=== PATIENT | male | born 1940 | race Caucasian/White ===

== ENCOUNTER → 2016-07-18 | Outpatient (CLI) | payer MEDICARE, OTHER ==
[~2016-07-18] MED LIST: CLOB0.055; HYDR-3533 PO; LUTE20TA PO; LYRI200C; LYRI200C PO; MELA10CA PO; PRED1SUS6; SPIRCAP; SPIRCAP INH; THEO200T27 PO; VIGA0.5D; VITA250T5 PO; [UNRECOGNIZED DRUG - CODE] PO
[2016-07-18 16:04] LABS: HEMATOCRIT 43.7 % (39.0-51.0); MEAN CELL VOLUME 103.3 FL (80.0-100.0); MEAN CORPUSCULAR HEMOGLOBIN 35.9 PG (27.0-34.0); MEAN CORPUSCULAR HGB CONC 34.8 % (32.0-36.0); PLATELET COUNT 163 TH/MM3 (150-450); RED BLOOD COUNT 4.23 MIL/MM3 (4.50-5.90); RED CELL DISTRIBUTION WIDTH 14.9 % (11.6-17.2); REVIEW FLAG FINAL; WHITE BLOOD COUNT 7.3 TH/MM3 (4.0-11.0)
[2016-07-18 16:23] LABS: ALKALINE PHOSPHATASE 154 U/L (45-117); ALT (GPT) 58 U/L (12-78); ANION GAP 8 MEQ/L (5-15); AST (GOT) 61 U/L (15-37); BICARBONATE 26.3 MEQ/L (21.0-32.0); BLOOD UREA NITROGEN 15 MG/DL (7-18); CHLORIDE 109 MEQ/L (98-107); GLOMERULAR FILTRATION RATE 54 ML/MIN (>89); GLUCOSE,FASTING 95 MG/DL (74-99); HDL CHOLESTEROL 71.2 MG/DL (40.0-60.0); LDL CHOLESTEROL 45 MG/DL (0-99); LDL CHOLESTEROL DIRECT 73 MG/DL (0-99); SODIUM (NA) 143 MEQ/L (136-145); TOTAL BILIRUBIN ADULT 0.9 MG/DL (0.2-1.0)
== END ==
LOC: PLAB 13:01
PROVIDERS: ATTEND Family Medicine
DX: E78.4 Other hyperlipidemia (principal); I10 Essential (primary) hypertension; J44.9 Chronic obstructive pulmonary disease, unspecified; R10.32 Left lower quadrant pain
CPT/HCPCS: 36415; 80053; 80061; 83721; 85027

== ENCOUNTER → 2016-10-17 | Outpatient (CLI) | payer MEDICARE, OTHER ==
[~2016-10-17] MED LIST changes: -HYDR-3533 PO; -LUTE20TA PO; -LYRI200C PO; -MELA10CA PO; -SPIRCAP INH; -THEO200T27 PO; -VITA250T5 PO; -[UNRECOGNIZED DRUG - CODE] PO
[2016-10-17 15:58] LABS: HEMATOCRIT 44.1 % (39.0-51.0); MEAN CELL VOLUME 105.7 FL (80.0-100.0); MEAN CORPUSCULAR HEMOGLOBIN 35.2 PG (27.0-34.0); MEAN CORPUSCULAR HGB CONC 33.3 % (32.0-36.0); PLATELET COUNT 169 TH/MM3 (150-450); RED BLOOD COUNT 4.17 MIL/MM3 (4.50-5.90); RED CELL DISTRIBUTION WIDTH 15.9 % (11.6-17.2); REVIEW FLAG FINAL; WHITE BLOOD COUNT 6.6 TH/MM3 (4.0-11.0)
[2016-10-17 16:15] LABS: ALT (GPT) 39 U/L (12-78); ANION GAP 7 MEQ/L (5-15); AST (GOT) 36 U/L (15-37); BICARBONATE 29.2 MEQ/L (21.0-32.0); BLOOD UREA NITROGEN 20 MG/DL (7-18); CHLORIDE 109 MEQ/L (98-107); GLOMERULAR FILTRATION RATE 50 ML/MIN (>89); GLUCOSE,FASTING 89 MG/DL (74-99); SODIUM (NA) 145 MEQ/L (136-145)
[2016-10-17 16:17] LABS: ALKALINE PHOSPHATASE 132 U/L (45-117); HDL CHOLESTEROL 63.7 MG/DL (40.0-60.0); LDL CHOLESTEROL 73 MG/DL (0-99); LDL CHOLESTEROL DIRECT 77 MG/DL (0-99); TOTAL BILIRUBIN ADULT 0.8 MG/DL (0.2-1.0)
== END ==
LOC: PLAB 13:56
PROVIDERS: ATTEND Family Medicine
DX: I12.9 Hypertensive chronic kidney disease with stage 1 through stage 4 chronic kidney disease, or unspecified chronic kidney disease (principal); N18.3 Chronic kidney disease, stage 3 (moderate); E78.2 Mixed hyperlipidemia
CPT/HCPCS: 36415; 80053; 80061; 83721; 85027

== ENCOUNTER → 2017-01-18 | Outpatient (CLI) | payer MEDICARE, OTHER ==
[2017-01-18 12:48] LABS: HEMATOCRIT 41.5 % (39.0-51.0); MEAN CELL VOLUME 106.8 FL (80.0-100.0); MEAN CORPUSCULAR HEMOGLOBIN 35.9 PG (27.0-34.0); MEAN CORPUSCULAR HGB CONC 33.6 % (32.0-36.0); PLATELET COUNT 251 TH/MM3 (150-450); RED BLOOD COUNT 3.88 MIL/MM3 (4.50-5.90); RED CELL DISTRIBUTION WIDTH 15.1 % (11.6-17.2); REVIEW FLAG FINAL; WHITE BLOOD COUNT 7.1 TH/MM3 (4.0-11.0)
[2017-01-18 13:17] LABS: ANION GAP 8 MEQ/L (5-15); AST (GOT) 32 U/L (15-37); BICARBONATE 30.4 MEQ/L (21.0-32.0); BLOOD UREA NITROGEN 29 MG/DL (7-18); CHLORIDE 105 MEQ/L (98-107); GLOMERULAR FILTRATION RATE 49 ML/MIN (>89); GLUCOSE,FASTING 96 MG/DL (74-99); POTASSIUM 3.8 MEQ/L (3.5-5.1); SODIUM (NA) 143 MEQ/L (136-145)
[2017-01-18 13:28] LABS: ALKALINE PHOSPHATASE 125 U/L (45-117); ALT (GPT) 35 U/L (12-78); HDL CHOLESTEROL 45.1 MG/DL (40.0-60.0); LDL CHOLESTEROL 60 MG/DL (0-99); LDL CHOLESTEROL DIRECT 77 MG/DL (0-99); TOTAL BILIRUBIN ADULT 0.7 MG/DL (0.2-1.0)
== END ==
LOC: PLAB 10:44
PROVIDERS: ATTEND Family Medicine
DX: J44.9 Chronic obstructive pulmonary disease, unspecified (principal); N18.3 Chronic kidney disease, stage 3 (moderate); E78.2 Mixed hyperlipidemia; I12.9 Hypertensive chronic kidney disease with stage 1 through stage 4 chronic kidney disease, or unspecified chronic kidney disease
CPT/HCPCS: 36415; 80053; 80061; 83721; 85027

== ENCOUNTER 2017-07-05 02:02 | Emergency (ER) | payer MEDICARE, OTHER ==
[~2017-07-05] VITALS: Ht 177.8 cm; Wt 84.0 kg
[2017-07-05 02:15] VITALS: BP 158/95; PULSE 82; RESP 18; TEMP 97.6; O2SAT 96
[2017-07-05 02:27] LABS: AUTOMATED NEUTROPHIL # 4.5 TH/MM3 (1.8-7.7); BASOPHIL # 0.1 TH/MM3 (0-0.2); BASOPHIL % 1.2 % (0.0-2.0); EOSINOPHIL # 0.4 TH/MM3 (0-0.4); EOSINOPHIL % 4.5 % (0.0-4.0); LYMPH % 31.8 % (9.0-44.0); LYMPHOCYTE # 2.7 TH/MM3 (1.0-4.8); MEAN CELL VOLUME 107.1 FL (80.0-100.0); MEAN CORPUSCULAR HEMOGLOBIN 34.8 PG (27.0-34.0); MEAN CORPUSCULAR HGB CONC 32.5 % (32.0-36.0); MEAN PLATELET VOLUME 8.1 FL (7.0-11.0); MONOCYTE # 0.8 TH/MM3 (0-0.9); NEUT % 53.5 % (16.0-70.0); PLATELET COUNT 155 TH/MM3 (150-450); RED BLOOD COUNT 3.73 MIL/MM3 (4.50-5.90); RED CELL DISTRIBUTION WIDTH 15.1 % (11.6-17.2); WHITE BLOOD COUNT 8.5 TH/MM3 (4.0-11.0)
[2017-07-05 02:39] LABS: BICARBONATE 24.9 MEQ/L (21.0-32.0); CALCIUM 8.3 MG/DL (8.5-10.1)
[2017-07-05 02:43] LABS: CREATININE 1.4 MG/DL (0.60-1.30)
--- NOTE | 2017-07-05 02:45 | RADRPT ---
EXAM DATE/TIME: 07/05/2017 02:23 [facility] COMPARISON: CT BRAIN W/O CONTRAST, December 15, 2015, 9:21. INDICATIONS : Possible fall, ETOH. RADIATION DOSE: 62.09 CTDIvol (mGy) MEDICAL HISTORY : Hypertension. SURGICAL HISTORY : [place] hole. ENCOUNTER: Initial ACUITY: 1 day PAIN SCALE: Non-responsive LOCATION: cranial TECHNIQUE: Multiple contiguous axial images were obtained of the head. Using automated exposure control and adj ustment of the mA and/or kV according to patient size, radiation dose was kept as low as reasonably a chievable to obtain optimal diagnostic quality images. DICOM format image data is available electro nically for review and comparison. FINDINGS: CEREBRUM: There is generalized cervical atrophy. Ventricles are prominent but stable from the prior study. Righ t frontal MASON HELPER shunt tubing is present and tubing tip terminates in the midline. No evidence of midlin e shift, mass lesion, hemorrhage or acute infarction. No extra-axial fluid collections are seen. POSTERIOR FOSSA: The cerebellum and brainstem demonstrate no acute finding. The 4th ventricle is midline. The cerebe llopontine angle is unremarkable. EXTRACRANIAL: Visualized sinuses are clear. SKULL: No evidence of skull fracture. There is a robyn hole in the right frontal. CONCLUSION: Stable noncontrast head CT. No acute finding is identified. Ventricles remain prominent but stable. R ight frontal MASON HELPER shunt is in unchanged location. Rahat Reilly MD on July 05, 2017 at 2:41 Board Certified Radiologist. This report was verified electronically.
--- NOTE | 2017-07-05 02:49 | RADRPT ---
EXAM DATE/TIME: 07/05/2017 02:23 [facility] COMPARISON: CT CERVICAL SPINE W/O CONTRAST, October 02, 2015, 8:42. INDICATIONS : Possible fall, ETOH. RADIATION DOSE: 26.50 CTDIvol (mGy) MEDICAL HISTORY : Hypertension. SURGICAL HISTORY : None. ENCOUNTER: Initial ACUITY: 1 day PAIN SCALE: Non-responsive LOCATION: neck TECHNIQUE: Volumetric scanning of the cervical spine was performed. Multiplanar reconstructions in the sagittal, coronal and oblique axial planes were performed. Using automated exposure control and adjustment o f the mA and/or kV according to patient size, radiation dose was kept as low as reasonably achievable to obtain optimal diagnostic quality images. DICOM format image data is available electronically f or review and comparison. FINDINGS: There is stable 3 mm of antral listhesis of C7 on T1. The atlantoaxial relationship is within normal limits. There is no prevertebral soft tissue swelling present. No fracture or dislocation is identifi ed. There is degenerative disc disease at C4-C5 through C6-C7. There is right facet arthrosis at C3-C 4 and C4-C5 and left facet arthrosis at C2-C3 through C5-C6. There are bridging osteophytes anteriorl y at C5-C6. The visualized portions of the posterior fossa, paraspinous soft tissues, and upper lung zones demons trate no acute abnormality. CONCLUSION: Stable examination of the cervical spine with multilevel degenerative change, as above. No acute cerv ical spine abnormality is identified. Rahat Reilly MD on July 05, 2017 at 2:44 Board Certified Radiologist. This report was verified electronically.
--- NOTE | 2017-07-05 03:23 | PD ---
HPI Chief Complaint: Alcohol/Drug Intoxication Time Seen by Provider: 02:09 Travel History International Travel<30 days: No Contact w/Intl Traveler<30days: No Traveled to known affect area: No History of Present Illness HPI The patient is a 76-year-old male that was sleeping with his in their home and at 1:30 AM this morning his heard a crash. She got up and found her on the floor incoherent with completely unintelligible speech. She called months and the patient was brought here. By the time the patient arrived here he was able to speak and has gradually improved over the night so that he is easy to understand at this time. He does have a right ROUND CUTTER OPERATOR shunt, apparently because of frequent falls. The patient only admits to one scotch and water this evening. PFSH Past Medical History Asthma: No Autoimmune Disease: No Blood Disorders: No Cancer: Yes (skin) Cardiovascular Problems: No High Cholesterol: Yes COPD: Yes Diabetes: No Diminished Hearing: No Endocrine: No Gastrointestinal Disorders: Yes (HEMORRHOID SURGERY) Genitourinary: No Hepatitis: No Hiatal Hernia: Yes Hypertension: Yes Immune Disorder: No Inguinal Hernia: Yes (1995) Musculoskeletal: No Neurologic: Yes (NEUROPATHY IN FEET, POOR BALANCE AND FALLS) Psychiatric: No Respiratory: Yes (COPD, SLEEP APNEA USES C PAP) Immunizations Current: Yes Seizures: Yes (long time ago) Sleep Apnea: Yes Thyroid Disease: No Tetanus Vaccination: < 5 Years Influenza Vaccination: No PNEUMOCCOCAL Vaccine (Year): 2 Past Surgical History Abdominal Surgery: Yes (HERNIA REPAIR X 2) AICD: No Cardiac Surgery: No Ear Surgery: No Endocrine Surgery: No Eye Surgery: No Genitourinary Surgery: Yes (HEMORRHOID REMOVAL) Gynecologic Surgery: No Joint Replacement: Yes (bilat knee) Neurologic Surgery: Yes (R FRONTAL ABDI HOLE) Oral Surgery: No Pacemaker: No Thoracic Surgery: No Other Surgery: Yes Social History Alcohol Use: Yes (daily) Tobacco Use: Yes (1/2 ppd) Substance Use: No Allergies-Medications (Allergen,Severity, Reaction): Coded Allergies: Sulfa (Sulfonamide Antibiotics) (Unverified Allergy, Severe, Swelling, 07/05) meperidine (Unverified Allergy, Severe, UNKNOWN, 07/05/17) SWELLING OF ARM AFTER IV DOSE penicillin G (Unverified Allergy, Severe, "DOES NOT WORK", 07/05/17) Reported Meds & Prescriptions Reported Meds & Active Scripts Active Reported Clobetasol Topical (Clobetasol Propionate) 0.05% Cream Spiriva Handihaler (Tiotropium Inh) 18 Mcg Cap Lyrica (Pregabalin) 200 Mg Cap Vigamox Opth Drops (Moxifloxacin Opth Drops) 0.5 % Soln Prednisolone Acetate Opth 1% Susp Review of Systems ROS Limitations: Intoxication Except as stated in HPI: all other systems reviewed are Neg Physical Exam Narrative GENERAL: The patient is alert, oriented 3 and in no apparent distress. The patient does appear clinically intoxicated. His vital signs show temperature 97.6 and blood pressure 158/95 but are otherwise normal. SKIN: Focused skin assessment warm/dry. The skin shows multiple scars of the scalp multiple falls in the past. HEAD: Atraumatic. Normocephalic. Neither raccoon eyes or torres sign is present. There is no skull deformity present. EYES: Pupils equal and round. No scleral icterus. No injection or drainage. ENT: No nasal bleeding or discharge. Mucous membranes pink and moist. There is no hemotympanum present. NECK: Trachea midline. No JVD. No neck tenderness or deformity is present but the patient is intoxicated at the time of exam. CARDIOVASCULAR: Regular rate and rhythm. No murmur appreciated. RESPIRATORY: No accessory muscle use. Clear to auscultation. Breath sounds equal bilaterally. GASTROINTESTINAL: Abdomen soft, non-tender, nondistended. Hepatic and splenic margins not palpable. MUSCULOSKELETAL: No obvious deformities. No clubbing. No cyanosis. No edema. NEUROLOGICAL: Awake and alert. No obvious cranial nerve deficits. Motor grossly within normal limits. Slightly slurred speech. PSYCHIATRIC: The patient appears alcohol intoxicated; insight and judgment fair. Data Data Last Documented VS Vital Signs Date Time Temp Pulse Resp B/P (MAP) Pulse Ox O2 Delivery O2 Flow Rate FiO2 07/05/17 02:15 97.6 82 18 158/95 (116) [address] Brain W/O Iv Contrast(Rout) (07/05/17 02:09) Ct Cerv Spine W/O Contrast (07/05/17 02:09) Basic Metabolic Panel (Bmp) (07/05/17 02:09) Complete Blood Count With Diff (07/05/17 02:09) Alcohol (Ethanol) (07/05/17 02:09) Labs Laboratory Tests Test 07/05/17 02:15 White Blood Count 8.5 TH/MM3 Red Blood Count 3.73 MIL/MM3 Hemoglobin 13.0 GM/DL Hematocrit 40.0 % Mean Corpuscular Volume 107.1 FL Mean Corpuscular Hemoglobin 34.8 PG Mean Corpuscular Hemoglobin Concent 32.5 % Red Cell Distribution Width 15.1 % Platelet Count 155 TH/MM3 Mean Platelet Volume 8.1 FL Neutrophils (%) (Auto) 53.5 % Lymphocytes (%) (Auto) 31.8 % Monocytes (%) (Auto) 9.0 % Eosinophils (%) (Auto) 4.5 % Basophils (%) (Auto) 1.2 % Neutrophils # (Auto) 4.5 TH/MM3 Lymphocytes # (Auto) 2.7 TH/MM3 Monocytes # (Auto) 0.8 TH/MM3 Eosinophils # (Auto) 0.4 TH/MM3 Basophils # (Auto) 0.1 TH/MM3 CBC Comment DIFF FINAL Differential Comment Blood Urea Nitrogen 23 MG/DL Creatinine 1.40 MG/DL Random Glucose 92 MG/DL Calcium Level 8.3 MG/DL Sodium Level 136 MEQ/L Potassium Level 3.4 MEQ/L Chloride Level 104 MEQ/L Carbon Dioxide Level 24.9 MEQ/L Anion Gap 7 MEQ/L Estimat Glomerular Filtration Rate 49 ML/MIN Ethyl Alcohol Level 284 MG/DL MDM Medical Decision Making Medical Screen Exam Complete: Yes Emergency Medical Condition: Yes Medical Record Reviewed: Yes Interpretation(s) The BUN is 23, creatinine 1.4, GFR 49, calcium 8.3, potassium 3.4 but the rest of the basic metabolic profile is normal. The alcohol level is 284. The CT brain shows no evidence of skull fracture, there is a bur hole in the right frontal region and he has a stable noncontrast head CT. No acute finding is noted on the CT brain. The right frontal ROUND CUTTER OPERATOR shunt is unchanged in location. The ventricles remain prominent but are stable from a comparison of December 15, 2015. The CBC is normal except for an MCV of 107.1 and MCH [address].8. The CT of the cervical spine shows stable examination of the cervical spine with multilevel degenerative changes and no acute cervical spine abnormality is noted. Differential Diagnosis Alcohol intoxication, skull fracture, intracranial bleed, cervical spine fracture, hypo-/hyperglycemia, electrolyte disorder Narrative Course The patient has alcohol intoxication. He has had actually fairly rapid improvement of his speech and thought processes while in the emergency department. At this time the will take the patient home, he is to discontinue alcohol. Additional Instructions: Discontinue alcohol and follow-up with his primary care physician next week. Med/Other Pt SpecificInfo: No Change to Meds Disposition: 01 DISCHARGE HOME Condition: Stable Aden Tejada MD Jul 05, 2017 03:23
[2017-07-05 03:46] VITALS: BP 148/82
== END 2017-07-05 03:58 | disposition home or self-care (01) ==
LOC: PHED 02:02
DX: F10.129 Alcohol abuse with intoxication, unspecified (principal); J44.9 Chronic obstructive pulmonary disease, unspecified; E78.00 Pure hypercholesterolemia, unspecified; I10 Essential (primary) hypertension; F17.210 Nicotine dependence, cigarettes, uncomplicated; Z85.828 Personal history of other malignant neoplasm of skin; Z88.2 Allergy status to sulfonamides; Z88.0 Allergy status to penicillin; Z88.8 Allergy status to other drugs, medicaments and biological substances
CPT/HCPCS: 70450; 72125; 80048; 80307; 85025; 99284

== ENCOUNTER → 2017-07-19 | Outpatient (CLI) | payer MEDICARE, OTHER ==
[2017-07-19 16:22] LABS: ALBUMIN 3.5 GM/DL (3.4-5.0); AST (GOT) 27 U/L (15-37); BICARBONATE 27.9 MEQ/L (21.0-32.0); BLOOD UREA NITROGEN 14 MG/DL (7-18); CALCIUM 8.8 MG/DL (8.5-10.1); CHLORIDE 108 MEQ/L (98-107); CREATININE 1.36 MG/DL (0.60-1.30); GLOMERULAR FILTRATION RATE 51 ML/MIN (>89); GLUCOSE,FASTING 97 MG/DL (74-99); SODIUM (NA) 143 MEQ/L (136-145)
[2017-07-19 16:23] LABS: ALT (GPT) 34 U/L (12-78); CHOLESTEROL 141 MG/DL (120-200); TRIGLYCERIDES 96 MG/DL (42-150)
[2017-07-19 16:26] LABS: ALKALINE PHOSPHATASE 149 U/L (45-117); CHOLESTEROL/ HDL RATIO 1.96 RATIO; HDL CHOLESTEROL 71.9 MG/DL (40.0-60.0); HEMATOCRIT 41.8 % (39.0-51.0); HEMOGLOBIN 14.3 GM/DL (13.0-17.0); LDL CHOLESTEROL 50 MG/DL (0-99); LDL CHOLESTEROL DIRECT 77 MG/DL (0-99); MEAN CELL VOLUME 109.4 FL (80.0-100.0); MEAN CORPUSCULAR HEMOGLOBIN 37.4 PG (27.0-34.0); MEAN CORPUSCULAR HGB CONC 34.1 % (32.0-36.0); MEAN PLATELET VOLUME 9.4 FL (7.0-11.0); PLATELET COUNT 170 TH/MM3 (150-450); RED BLOOD COUNT 3.82 MIL/MM3 (4.50-5.90); RED CELL DISTRIBUTION WIDTH 15.7 % (11.6-17.2); TOTAL BILIRUBIN ADULT 0.8 MG/DL (0.2-1.0); WHITE BLOOD COUNT 6.3 TH/MM3 (4.0-11.0)
== END ==
LOC: PLAB 11:47
PROVIDERS: ATTEND Family Medicine
DX: E78.4 Other hyperlipidemia (principal); I10 Essential (primary) hypertension; R73.01 Impaired fasting glucose; J44.9 Chronic obstructive pulmonary disease, unspecified; F17.210 Nicotine dependence, cigarettes, uncomplicated
CPT/HCPCS: 36415; 80053; 80061; 83721; 85027

== ENCOUNTER 2017-07-22 02:13 | Emergency (ER) | payer MEDICARE, OTHER ==
--- NOTE | 2017-07-22 03:42 | RADRPT ---
EXAM DATE/TIME: 07/22/2017 03:12 [facility] COMPARISON: 07/05/2017. INDICATIONS : Fall. Altered mental status. ETOH RADIATION DOSE: 56.35 CTDIvol (mGy) MEDICAL HISTORY : Unable to obtain SURGICAL HISTORY : Unable to obtain ENCOUNTER: Initial ACUITY: 1 day PAIN SCALE: 0/10 LOCATION: cranial TECHNIQUE: Multiple contiguous axial images were obtained of the head. Using automated exposure control and adj ustment of the mA and/or kV according to patient size, radiation dose was kept as low as reasonably a chievable to obtain optimal diagnostic quality images. DICOM format image data is available electro nically for review and comparison. FINDINGS: CEREBRUM: Right frontal ventriculostomy catheter again noted. There is mild ventriculomegaly but unchanged.. N o evidence of midline shift, mass lesion, hemorrhage or acute infarction. No extra-axial fluid colle ctions are seen. POSTERIOR FOSSA: The cerebellum and brainstem are intact. The 4th ventricle is midline. The cerebellopontine angle i s unremarkable. EXTRACRANIAL: Right frontal scalp contusion. SKULL: The calvaria is intact. No evidence of skull fracture. CONCLUSION: 1. No bleed or other acute intracranial abnormality. 2. Right frontal scalp contusion. 3. Mild ventriculomegaly unchanged. Patient is shunted. Rahat Pacheco MD on July 22, 2017 at 3:40 Board Certified Radiologist. This report was verified electronically.
--- NOTE | 2017-07-22 03:44 | RADRPT ---
EXAM DATE/TIME: 07/22/2017 03:12 [facility] COMPARISON: CT CERVICAL SPINE W/O CONTRAST, July 05, 2017, 2:23. INDICATIONS : Fall. ETOH RADIATION DOSE: 31.85 CTDIvol (mGy) MEDICAL HISTORY : Unable to obtain SURGICAL HISTORY : Unable to obtain ENCOUNTER: Initial ACUITY: 1 day PAIN SCALE: 0/10 LOCATION: neck TECHNIQUE: Volumetric scanning of the cervical spine was performed. Multiplanar reconstructions in the sagittal, coronal and oblique axial planes were performed. Using automated exposure control and adjustment o f the mA and/or kV according to patient size, radiation dose was kept as low as reasonably achievable to obtain optimal diagnostic quality images. DICOM format image data is available electronically f or review and comparison. FINDINGS: There is stable 3 mm of antral listhesis of C7 on T1. The atlantoaxial relationship is within normal limits but with moderate to severe osteoarthritis anteriorly at C1/C2. There is no prevertebral soft tissue swelling present. No fracture or dislocation is identified. There is degenerative disc disease at C4-C5 through C6-C7. There is right facet arthrosis at C3-C4 and C4-C5 and left facet arthrosis a t C2-C3 through C5-C6. There are bridging osteophytes anteriorly at C5-C6. Emphysema seen of the visualized upper lobes. The visualized portions of the posterior fossa, paraspi nous soft tissues, and upper lung zones demonstrate no acute abnormality. CONCLUSION: No fracture or subluxation of the cervical spine. Chronic/degenerative changes as above. Rahat aPcheco MD on July 22, 2017 at 3:42 Board Certified Radiologist. This report was verified electronically.
--- NOTE | 2017-07-22 03:54 | PD ---
HPI . Intoxication/head injury Chief Complaint: Intoxication/head injury Time Seen by Provider: 02:55 Travel History International Travel<30 days: No Contact w/Intl Traveler<30days: No Traveled to known affect area: No History of Present Illness HPI 76-year-old male was noted to be drinking copious amounts of alcohol at home, fell and hit his head with resultant contusion/possible laceration, possible loss of consciousness. Patient is intoxicated and is noncontributory historian. Patient presents via ambulance on backboard and c-collar. Cervical spine precautions continued PFS Past Medical History Narrative Medical Past medical history reviewed Asthma: No Autoimmune Disease: No Blood Disorders: No Cancer: Yes (skin) Cardiovascular Problems: No High Cholesterol: Yes COPD: Yes Diabetes: No Diminished Hearing: No Endocrine: No Gastrointestinal Disorders: Yes (HEMORRHOID SURGERY) Genitourinary: No Hepatitis: No Hiatal Hernia: Yes Hypertension: Yes Immune Disorder: No Inguinal Hernia: Yes (1995) Musculoskeletal: No Neurologic: Yes (NEUROPATHY IN FEET, POOR BALANCE AND FALLS) Psychiatric: No Respiratory: Yes (COPD, SLEEP APNEA USES C PAP) Immunizations Current: Yes Seizures: Yes (long time ago) Sleep Apnea: Yes Thyroid Disease: No PNEUMOCCOCAL Vaccine (Year): 2 Past Surgical History Abdominal Surgery: Yes (HERNIA REPAIR X 2) AICD: No Cardiac Surgery: No Ear Surgery: No Endocrine Surgery: No Eye Surgery: No Genitourinary Surgery: Yes (HEMORRHOID REMOVAL) Gynecologic Surgery: No Joint Replacement: Yes (bilat knee) Neurologic Surgery: Yes (R FRONTAL ABDI HOLE) Oral Surgery: No Pacemaker: No Thoracic Surgery: No Other Surgery: Yes Social History Alcohol Use: Yes (daily) Tobacco Use: Yes (1/2 ppd) Substance Use: No Allergies-Medications (Allergen,Severity, Reaction): Coded Allergies: Sulfa (Sulfonamide Antibiotics) (Unverified Allergy, Severe, Swelling, ) meperidine (Unverified Allergy, Severe, UNKNOWN, 07/22/17) SWELLING OF ARM AFTER IV DOSE penicillin G (Unverified Allergy, Severe, "DOES NOT WORK", 07/22/17) Reported Meds & Prescriptions Reported Meds & Active Scripts Active Reported Clobetasol Topical (Clobetasol Propionate) 0.05% Cream Spiriva Handihaler (Tiotropium Inh) 18 Mcg Cap Lyrica (Pregabalin) 200 Mg Cap Vigamox Opth Drops (Moxifloxacin Opth Drops) 0.5 % Soln Prednisolone Acetate Opth 1% Susp Narrative Medication Allergies and medications reviewed Review of Systems ROS Limitations: Intoxication, Poor Historian General / Constitutional: No: Fever Eyes: No: Visual changes HENT: No: Headaches Cardiovascular: No: Chest Pain or Discomfort Respiratory: No: Shortness of Breath Gastrointestinal: No: Abdominal Pain Genitourinary: No: Dysuria Musculoskeletal: No: Pain Skin: No Rash Neurologic: No: Weakness Psychiatric: No: Depression Endocrine: No: Polydipsia Hematologic/Lymphatic: No: Easy Bruising Physical Exam Exam Limitations: Intoxication, Altered Mental Status, Poor Historian Narrative GENERAL: Awake and intoxicated, pleasant, cooperative. Alcohol on breath. No acute distress SKIN: Warm and dry. Color is normal no diaphoresis and pallor HEAD: Atraumatic. Normocephalic. EYES: Pupils equal and round. No scleral icterus. No injection or drainage. ENT: No nasal bleeding or discharge. Mucous membranes pink and moist. NECK: Trachea midline. No JVD. Nontender. C-collar replaced. Awaiting radiographic and clinical clearance during sobriety CARDIOVASCULAR: Regular rate and rhythm. No murmurs or gallop RESPIRATORY: No accessory muscle use. Clear to auscultation. Breath sounds equal bilaterally. GASTROINTESTINAL: Abdomen soft, non-tender, nondistended. Hepatic and splenic margins not palpable. MUSCULOSKELETAL: Extremities without clubbing, cyanosis, or edema. No obvious deformities. NEUROLOGICAL: Awake and intoxicated. No obvious gross focal deficit PSYCHIATRIC: Intoxicated, pleasant Data Data Last Documented VS Vital Signs Date Time Temp Pulse Resp B/P (MAP) Pulse Ox O2 Delivery O2 Flow Rate FiO2 07/22/17 06:59 78 18 177/98 (124) 96 Room Air Orders Orders Ct Brain W/O Iv Contrast(Rout) (07/22/17 ) Ct Cerv Spine W/O Contrast (07/22/17 ) Lidocaine 1% Inj (Xylocaine 1% Inj) (07/22/17 05:30) MDM Medical Decision Making Medical Screen Exam Complete: Yes Emergency Medical Condition: Yes Medical Record Reviewed: Yes Differential Diagnosis Alcohol intoxication, head injury, scalp abrasion/contusion Narrative Course CT head and C-spine reviewed by radiology, no acute abnormalities Patient awaiting sobriety Stellate laceration right forehead closed with Dermabond skin adhesive. Patient patient's requesting skin adhesive not use of sutures. Adequate wound closure. Patient advocating for himself by shift change. Awaiting remainder of clinical sobriety test and walk test in ED. Pending passing same, patient may be discharged. Diagnosis Primary Impression: Head injury Qualified Codes: S09.90XA - Unspecified injury of head, initial encounter Additional Impressions: Alcohol intoxication Qualified Codes: F10.929 - Alcohol use, unspecified with intoxication, unspecified Forehead laceration Qualified Codes: S01.81XA - Laceration without foreign body of other part of head, initial encounter Patient Instructions: Alcohol Dependence (ED), Alcohol Intoxication (ED), Facial Laceration (ED), Head Injury (ED) Additional Instructions: Head injury instructions as discussed. Allow Dermabond skin glue to flake off on its own, do not peel. Return promptly for worsening. Recommend alcohol rehab program. Use your walker and/or cane as discussed to assist with ambulation. Disposition: 01 DISCHARGE HOME Condition: Stable Osmani Mercado MD Jul 22, 2017 03:54
[2017-07-22] MEDS ORDERED: LIDOCAINE HCL 1% 20 ML VIAL INFIL ONE (05:30)
[2017-07-22 06:59] VITALS: BP 177/98; PULSE 78; RESP 18; O2SAT 96
[2017-07-22 09:10] VITALS: BP 172/79
== END 2017-07-22 09:12 | disposition home or self-care (01) ==
LOC: NEPE 02:13
DX: S01.81XA Laceration without foreign body of other part of head, initial encounter (principal); W19.XXXA Unspecified fall, initial encounter; Y92.009 Unspecified place in unspecified non-institutional (private) residence as the place of occurrence of the external cause; F10.129 Alcohol abuse with intoxication, unspecified; I10 Essential (primary) hypertension; E78.00 Pure hypercholesterolemia, unspecified; J44.9 Chronic obstructive pulmonary disease, unspecified; G62.9 Polyneuropathy, unspecified; F17.200 Nicotine dependence, unspecified, uncomplicated
CPT/HCPCS: 12011; 70450; 72125

== ENCOUNTER → 2017-10-16 | Outpatient (CLI) | payer MEDICARE, OTHER ==
[2017-10-16 17:47] LABS: AUTOMATED NEUTROPHIL # 3.8 TH/MM3 (1.8-7.7); BASOPHIL # 0.1 TH/MM3 (0-0.2); BASOPHIL % 0.8 % (0.0-2.0); EOSINOPHIL # 0.3 TH/MM3 (0-0.4); EOSINOPHIL % 4.6 % (0.0-4.0); HEMATOCRIT 41.9 % (39.0-51.0); HEMOGLOBIN 14.1 GM/DL (13.0-17.0); LYMPH % 24.3 % (9.0-44.0); LYMPHOCYTE # 1.5 TH/MM3 (1.0-4.8); MEAN CORPUSCULAR HEMOGLOBIN 37.1 PG (27.0-34.0); MEAN CORPUSCULAR HGB CONC 33.7 % (32.0-36.0); MONO % 7.1 % (0.0-8.0); MONOCYTE # 0.4 TH/MM3 (0-0.9); NEUT % 63.2 % (16.0-70.0); PLATELET COUNT 140 TH/MM3 (150-450); RED BLOOD COUNT 3.81 MIL/MM3 (4.50-5.90); RED CELL DISTRIBUTION WIDTH 16.6 % (11.6-17.2)
[2017-10-16 17:53] LABS: ALBUMIN 3.7 GM/DL (3.4-5.0); AST (GOT) 36 U/L (15-37); BICARBONATE 24.6 MEQ/L (21.0-32.0); BLOOD UREA NITROGEN 17 MG/DL (7-18); CALCIUM 8.9 MG/DL (8.5-10.1); CHLORIDE 109 MEQ/L (98-107); GLUCOSE,FASTING 86 MG/DL (74-99); SODIUM (NA) 144 MEQ/L (136-145)
[2017-10-16 17:54] LABS: CHOLESTEROL 144 MG/DL (120-200); CREATININE 1.29 MG/DL (0.60-1.30); GLOMERULAR FILTRATION RATE 54 ML/MIN (>89)
[2017-10-16 18:21] LABS: ALKALINE PHOSPHATASE 154 U/L (45-117); ALT (GPT) 33 U/L (12-78); CHOLESTEROL/ HDL RATIO 2.06 RATIO; HDL CHOLESTEROL 69.9 MG/DL (40.0-60.0); LDL CHOLESTEROL 53 MG/DL (0-99); LDL CHOLESTEROL DIRECT 73 MG/DL (0-99); TOTAL BILIRUBIN ADULT 0.9 MG/DL (0.2-1.0); TOTAL PROTEIN 7.1 GM/DL (6.4-8.2); TRIGLYCERIDES 104 MG/DL (42-150)
[2017-10-16 19:05] LABS: HEMOGLOBIN A1C 5.1 % (4.3-6.0)
== END ==
LOC: PLAB 12:55
PROVIDERS: ATTEND Family Medicine
DX: R53.83 Other fatigue (principal); E78.2 Mixed hyperlipidemia; I10 Essential (primary) hypertension; R73.01 Impaired fasting glucose; E53.8 Deficiency of other specified B group vitamins
CPT/HCPCS: 36415; 80053; 80061; 82607; 83036; 83721; 84443; 85025